=== PATIENT | male | born 1940 ===

== ENCOUNTER 2017-04-28 11:11 | Day surgery (SDC) | payer MEDICARE ==
[2017-04-17 10:36] VITALS: BMI 29.7
[2017-04-28] MEDS ORDERED: Gentamicin 160 MG in Sodium Chloride 0.9% 100 ML IVPB ONE (15:07)
[2017-04-28] MEDS ORDERED: Ciprofloxacin 400mg/200ml D5W 400 MG/200 ML BAG IVPB ONE (15:41)
[2017-04-28] MEDS ORDERED: Lidocaine 2% Jelly (Uro-Jet) ONE ×2 (15:41→16:29)
[2017-04-28] MEDS ORDERED: Propofol 10 mg/ml Inj (20 ML) ONE (15:50)
--- NOTE | 2017-04-28 16:17 | PCM.SURG1 ---
Surgeon's Initial Post Op Note - Surgeon's Notes Surgeon: Grover Gunner Mate: SANDRINE Type of Anesthesia: General LMA Anesthesia Administered By: staff Pre-Operative Diagnosis: BPH elevated psa Operative Findings: Enlarbed prostate with HERNANDEZ Post-Operative Diagnosis: BPH HERNANDEZ elevated PSA Operation Performed: Cystoscopy US gueded Prostate BX Specimen/Specimens Removed: 12 core biopsy Estimated Blood Loss: EBL {In ML}: 0 Blood Products Given: N/A Drains Used: No Drains Post-Op Condition: Good Date of Surgery/Procedure: 04/28/17 Time of Surgery/Procedure: 16:17
[2017-04-28] MEDS ORDERED: HYDROmorphone 0.5 mg/0.5 ml ISec IVP PRN (16:22)
[2017-04-28 18:15] VITALS: RESP 16; O2SAT 98
[2017-04-28 18:19] VITALS: BP 136/71; PULSE 81; TEMP 97.6
--- NOTE | 2017-04-29 04:01 | OP ---
PROCEDURE DATE: 04/28/2017 PREOPERATIVE DIAGNOSES: Benign prostatic hypertrophy, lower urinary tract symptoms, and elevated prostate-specific antigen. POSTOPERATIVE DIAGNOSES: Benign prostatic hypertrophy, lower urinary tract symptoms, and elevated prostate-specific antigen. PROCEDURE: Cystoscopy, transrectal prostate biopsy. FINDINGS: Enlarged prostate (BPH) with bladder outlet obstruction. DESCRIPTION OF PROCEDURE: As follows. The patient signed a detailed informed consent. He is aware of the risks and complications of prostatic biopsy and cystoscopy. He was willing to accept those risks. He is aware of alternative ways of managing low urinary tract symptoms and elevated PSA. The patient was brought into the room. He received prophylactic antibiotics and Betadine enema. Transrectal ultrasound was done and used to guide a 12-core biopsy which was done without difficulty. No bleeding occurred. The patient was then re-draped and prepped, and cystoscoped with a #21 Storz panendoscope. The pendulous and membranous urethras were normal. The prostatic urethra showed trilobed hypertrophy with significant outlet obstruction. There was +3 to +4 trabeculation of the bladder. No evidence of urothelial tumors or stones. Both ureteral orifices efflux clear urine. Based on the above findings, the patient would be a candidate for GreenLight laser if biopsy is negative for cancer. Oleg Ness MD
== END 2017-04-28 18:10 | disposition home or self-care (01) ==
LOC: C.SDS 11:11
PROVIDERS: ATTEND Urology
DX: N40.1 Benign prostatic hyperplasia with lower urinary tract symptoms (principal); N32.0 Bladder-neck obstruction
CPT/HCPCS: 55700; 88305; J0744; J1580

== ENCOUNTER 2017-05-19 11:17 | Day surgery (SDC) | payer MEDICARE ==
[2017-04-17 10:36] VITALS: BMI 29.7
[2017-05-19] MEDS ORDERED: Gentamicin 160 MG in Sodium Chloride 0.9% 100 ML IVPB ONE (14:18)
[2017-05-19] MEDS ORDERED: Ciprofloxacin 400mg/200ml D5W 0 MG/0 ML BAG IVPB ONE (14:19)
[2017-05-19] MEDS ORDERED: Propofol 10 mg/ml Inj (20 ML) ONE (15:04)
[2017-05-19] MEDS ORDERED: Midazolam 2 MG/2 ML VIAL ONE (15:04)
[2017-05-19] MEDS ORDERED: Lidocaine Hydrochloride 5 ML INJ ONE (15:06)
[2017-05-19] MEDS ORDERED: Ciprofloxacin 400mg/200ml D5W 400 MG/200 ML BAG IVPB ONE (15:11)
--- NOTE | 2017-05-19 15:55 | PCM.SURG1 ---
Surgeon's Initial Post Op Note - Surgeon's Notes Surgeon: Grover [employer] Specialist: Cee Type of Anesthesia: General LMA Anesthesia Administered By: staff Pre-Operative Diagnosis: BPH/HERNANDEZ Operative Findings: same Post-Operative Diagnosis: same Operation Performed: TULAP Specimen/Specimens Removed: NA Estimated Blood Loss: EBL {In ML}: 0 Blood Products Given: N/A Drains Used: No Drains Post-Op Condition: Good Date of Surgery/Procedure: 05/19/17 Time of Surgery/Procedure: 15:55
[2017-05-19] MEDS ORDERED: HYDROmorphone 0.5 mg/0.5 ml ISec IVP PRN (16:02)
[2017-05-19] MEDS ORDERED: Lactated Ringer's 1,000 ML IV ONE (16:15)
[2017-05-19 17:54] VITALS: RESP 16; O2SAT 99
[2017-05-19 17:57] VITALS: BP 111/58; PULSE 90; TEMP 97.7
--- NOTE | 2017-05-20 02:31 | OP ---
PROCEDURE DATE: 05/19/2017 PREOPERATIVE DIAGNOSIS: Benign prostatic hyperplasia with bladder outlet obstruction. POSTOPERATIVE DIAGNOSIS: Benign prostatic hyperplasia with bladder outlet obstruction. PROCEDURE: Transurethral laser ablation of the prostate. FINDINGS: Trilobar hypertrophy of the prostate with significant outlet obstruction and compensatory trabeculation of the bladder. DESCRIPTION OF PROCEDURE: The procedure is as follows. The patient was asked to sign a detailed informed consent after full explanation of the risks, complications, and alternatives to transurethral laser ablation of the prostate. He agreed to the procedure and was willing to accept the risks. He was brought into the room and a timeout was taken according to rules and regulations of [facility]. The patient received prophylactic antibiotics, and he cystoscoped with laser cystoscope. Previous cystoscopic findings were confirmed. The laser element was then inserted within the scope and the laser fiber within the laser element. The vaporization of the prostate tissue began at 11 o'clock and carried down at 6 o' clock, just distal to the bladder neck and just proximal to the verumontanum. The left lateral, the base tissue, and the roof tissue were vaporized in similar fashion until the good voiding channel was occurred. No injury occurred to the ureteral orifices, bladder, external sphincter, or verumontanum. There was no bleeding. The patient tolerated this very well. The bladder is filled. The catheter is removed. A #[address] 5 mL catheter was inserted and drained clear irrigant fluid. The patient tolerated the procedure well and will be sent to home with the catheter in place to be removed tomorrow with the prescription for Cipro and detailed instructions regarding postoperative care. Oleg Ness MD
== END 2017-05-19 17:48 | disposition home or self-care (01) ==
LOC: C.SDS 11:17
PROVIDERS: ATTEND Urology
DX: N40.1 Benign prostatic hyperplasia with lower urinary tract symptoms (principal); N32.0 Bladder-neck obstruction; E11.9 Type 2 diabetes mellitus without complications; E78.5 Hyperlipidemia, unspecified; I10 Essential (primary) hypertension; Z85.46 Personal history of malignant neoplasm of prostate; Z86.73 Personal history of transient ischemic attack (TIA), and cerebral infarction without residual deficits; I25.2 Old myocardial infarction; R97.20 Elevated prostate specific antigen [PSA]; N13.8 Other obstructive and reflux uropathy
CPT/HCPCS: 52648; J0744; J1580; J7120